=== PATIENT | male | born 1950 | race Caucasian/White ===

== ENCOUNTER 2020-09-18 12:22 | Emergency (ER) | payer MEDICARE ==
[~2020-09-18] VITALS: Ht 185.4 cm; Wt 101.0 kg
[2020-09-18 12:26] VITALS: BP 135/79
[2020-09-18 12:52] LABS: BASOPHILS # (AUTO) 0.1 X10'3 (0-0.2); BASOPHILS % (AUTO) 1.2 % (0-1); EOSINOPHILS # (AUTO) 0.2 X10'3 (0-0.9); EOSINOPHILS % (AUTO) 2.9 % (0-6); HEMATOCRIT 39.6 % (42.0-52.0); HEMOGLOBIN 13.8 g/dl (14.0-17.9); LYMPHOCYTES # (AUTO) 1.7 X10'3 (1.1-4.8); LYMPHOCYTES % (AUTO) 29.1 % (21-51); MEAN CORPUSCULAR HEMOGLOBIN 35.7 PG (27.0-31.0); MEAN CORPUSCULAR HGB CONC 34.9 g/dL (33.0-36.5); MEAN CORPUSCULAR VOLUME 102.4 FL (78-98); MEAN PLATELET VOLUME 7.1 FL (7.4-10.4); MONOCYTES % (AUTO) 17.4 % (2-12); NEUTROPHILS # (AUTO) 2.9 X10'3 (1.8-7.7); NEUTROPHILS % (AUTO) 49.4 % (42-75); PLATELET COUNT 123 X10'3 (140-440); RED BLOOD COUNT 3.87 X10'6 (4.70-6.10); RED CELL DISTRIBUTION WIDTH 15.4 % (11.5-14.5)
[2020-09-18 13:06] LABS: ALANINE AMINOTRANSFERASE 16 U/L (12-78); ALBUMIN 2.4 G/DL (3.4-5.0); ALKALINE PHOSPHATASE 110 IU/L (46-116); ANION GAP 5 (8-16); ASPARTATE AMINO TRANSFERASE 44 U/L (10-37); BILIRUBIN,TOTAL 4.2 MG/DL (0.1-1.0); BLOOD UREA NITROGEN 8 MG/DL (7-18); BUN/CREATININE RATIO 10.8 (5.4-32.0); CALCIUM 7.8 MG/DL (8.5-10.1); CHLORIDE 103 MMOL/L (99-107); CREATININE 0.74 MG/DL (0.60-1.10); LIPASE 187 U/L (73-393); POTASSIUM 4.2 MMOL/L (3.5-5.1); SODIUM 139 MMOL/L (135-145); TOTAL CARBON DIOXIDE 30.8 MMOL/L (24-32); eGFR > 90 ML/MIN
[2020-09-18 13:08] LABS: ALBUMIN/GLOBULIN RATIO 0.6 (1.1-1.5); GLUCOSE 85 MG/DL (70-104); TOTAL PROTEIN 6.6 G/DL (6.4-8.2)
== END 2020-09-18 20:22 | disposition left against medical advice (07) ==
LOC: ER 12:23
DX: R10.32 Left lower quadrant pain (principal); R60.0 Localized edema; Z53.21 Procedure and treatment not carried out due to patient leaving prior to being seen by health care provider
CPT/HCPCS: 80053; 83690; 85025

== ENCOUNTER 2020-10-16 09:26 | Day surgery (SDC) | payer MEDICARE, OTHER ==
[2020-10-16] VITALS (8 sets, daily range): BP systolic 95–135; BP diastolic 55–79
[~2020-10-16] VITALS: Ht 185.4 cm; Wt 105.1 kg
[2020-10-16] MEDS ORDERED: OXYC5CAP19 PO (10:12)
[2020-10-16] MEDS ORDERED: PROP10TA10 PO (10:12)
[2020-10-16] MEDS ORDERED: FURO-149 PO (10:12)
[2020-10-16] MEDS ORDERED: EPLE50TA3 PO (10:12)
[2020-10-16] MEDS ORDERED: LACT10SO3 PO (10:12)
[2020-10-16] MEDS: albumin 25% 100mL bottle x 1 IV PRN ×2 (11:30→12:15)
== END 2020-10-16 13:20 | disposition home or self-care (01) ==
LOC: SSTAY O 09:26
PROVIDERS: ATTEND Radiology Diagnostic Radiology
DX: R18.8 Other ascites (principal); R14.0 Abdominal distension (gaseous); K74.60 Unspecified cirrhosis of liver; Z85.05 Personal history of malignant neoplasm of liver; Z79.899 Other long term (current) drug therapy; Z88.8 Allergy status to other drugs, medicaments and biological substances
CPT/HCPCS: 49083; P9047

== ENCOUNTER 2020-10-28 07:30 | Day surgery (SDC) | payer OTHER ==
[~2020-10-28] VITALS: Ht 182.9 cm; Wt 98.5 kg
[2020-10-28] VITALS (12 sets, daily range): BP systolic 111–136; BP diastolic 56–77
[~2020-10-28 07:30] MED LIST: EPLE50TA3 PO; FURO-149 PO; LACT10SO3 PO; OXYC5CAP19 PO; PROP10TA10 PO
[2020-10-28] MEDS: albumin 25% 100mL bottle x 1 IV PRN ×2 (10:00→10:44)
== END 2020-10-28 11:15 | disposition home or self-care (01) ==
LOC: SSTAY O 07:30
PROVIDERS: ATTEND Radiology Diagnostic Radiology
DX: R18.8 Other ascites (principal); R14.0 Abdominal distension (gaseous); K74.60 Unspecified cirrhosis of liver; Z85.05 Personal history of malignant neoplasm of liver; Z86.19 Personal history of other infectious and parasitic diseases; Z88.8 Allergy status to other drugs, medicaments and biological substances; Z79.899 Other long term (current) drug therapy
CPT/HCPCS: 49083; P9047

== ENCOUNTER 2020-11-17 08:56 | Day surgery (SDC) | payer OTHER ==
[2020-11-17] VITALS (11 sets, daily range): BP systolic 100–121; BP diastolic 54–70
[~2020-11-17] VITALS: Ht 185.4 cm; Wt 98.4 kg
[2020-11-17] MEDS: albumin 25% 100mL bottle x 1 IV PRN ×2 (10:26→11:09)
== END 2020-11-17 12:25 | disposition home or self-care (01) ==
LOC: SSTAY O 08:56
PROVIDERS: ATTEND Radiology Diagnostic Radiology
DX: R18.8 Other ascites (principal); R14.0 Abdominal distension (gaseous); K74.60 Unspecified cirrhosis of liver; C22.0 Liver cell carcinoma; Z88.8 Allergy status to other drugs, medicaments and biological substances; Z79.899 Other long term (current) drug therapy
CPT/HCPCS: 49083; P9047

== ENCOUNTER 2020-12-01 07:37 | Day surgery (SDC) | payer OTHER ==
[2020-12-01] VITALS (10 sets, daily range): BP systolic 92–129; BP diastolic 47–72
[~2020-12-01] VITALS: Ht 185.4 cm; Wt 94.0 kg
[2020-12-01] MEDS: albumin 25% 100mL bottle x 1 IV PRN ×2 (10:10→10:57)
== END 2020-12-01 12:00 | disposition home or self-care (01) ==
LOC: SSTAY O 07:37
PROVIDERS: ATTEND Radiology Vascular & Interventional Radiology
DX: R18.8 Other ascites (principal); R14.0 Abdominal distension (gaseous); K74.60 Unspecified cirrhosis of liver; Z86.19 Personal history of other infectious and parasitic diseases; Z85.05 Personal history of malignant neoplasm of liver
CPT/HCPCS: 49083; P9047

== ENCOUNTER 2020-12-17 07:58 | Day surgery (SDC) | payer OTHER ==
[~2020-12-17] VITALS: Ht 185.4 cm; Wt 92.8 kg
[2020-12-17] VITALS (14 sets, daily range): BP systolic 73–121; BP diastolic 35–62
[2020-12-17] MEDS: albumin 25% 100mL bottle x 1 IV PRN ×2 (09:45→10:33)
--- NOTE | 2020-12-17 10:25 | NUR ---
Contacted MICHELLE Preciado to notify that patient BP 73/35 with dizziness reported. Paracentesis drainage stopped. New orders for 500 mL bolus normal saline and repeat times once to maintain SBP > 100. OK to administer 2nd albumin.
--- NOTE | 2020-12-17 10:35 | NUR ---
Monitoring VS. Patient in [place] position. BP 81/44. Normal saline bolus infusing.
--- NOTE | 2020-12-17 10:45 | NUR ---
BP 95/52. 2nd albumin infusing. Patient A/O x 4 with no complaints of dizziness. Will continue to monitor.
[2020-12-17] MEDS ORDERED: normal saline 1000ml 1,000 ML IV ONE (11:05)
== END 2020-12-17 12:15 | disposition home or self-care (01) ==
LOC: SSTAY O 07:58
PROVIDERS: ATTEND Radiology Diagnostic Radiology
DX: R18.8 Other ascites (principal); K74.60 Unspecified cirrhosis of liver; C22.0 Liver cell carcinoma; Z86.19 Personal history of other infectious and parasitic diseases; Z79.899 Other long term (current) drug therapy
CPT/HCPCS: 49083; P9047

== ENCOUNTER 2020-12-29 08:27 | Day surgery (SDC) | payer OTHER ==
[~2020-12-29] VITALS: Ht 185.4 cm; Wt 93.5 kg
[2020-12-29] VITALS (9 sets, daily range): BP systolic 104–132; BP diastolic 55–72
[2020-12-29] MEDS: albumin 25% 100mL bottle x 1 IV PRN ×2 (09:57→10:49)
== END 2020-12-29 11:45 | disposition home or self-care (01) ==
LOC: SSTAY O 08:27
PROVIDERS: ATTEND Radiology Vascular & Interventional Radiology
DX: R18.8 Other ascites (principal); K74.60 Unspecified cirrhosis of liver; C22.0 Liver cell carcinoma; Z98.890 Other specified postprocedural states; Z88.8 Allergy status to other drugs, medicaments and biological substances; Z79.899 Other long term (current) drug therapy
CPT/HCPCS: 49083; P9047

== ENCOUNTER 2021-01-22 07:50 | Day surgery (SDC) | payer OTHER ==
[~2021-01-22] VITALS: Ht 188 cm; Wt 94.4 kg
[2021-01-22] VITALS (11 sets, daily range): BP systolic 96–112; BP diastolic 54–76
[2021-01-22] MEDS: albumin 25% 100mL bottle x 1 IV PRN ×2 (09:51→10:32)
== END 2021-01-22 12:00 | disposition home or self-care (01) ==
LOC: SSTAY O 07:50
PROVIDERS: ATTEND Radiology Vascular & Interventional Radiology
DX: R18.8 Other ascites (principal); R14.0 Abdominal distension (gaseous); C22.0 Liver cell carcinoma; Z86.19 Personal history of other infectious and parasitic diseases; Z88.8 Allergy status to other drugs, medicaments and biological substances; Z79.899 Other long term (current) drug therapy
CPT/HCPCS: 49083; P9047

== ENCOUNTER 2021-02-02 08:31 | Day surgery (SDC) | payer OTHER ==
[2021-02-02] VITALS (10 sets, daily range): BP systolic 87–122; BP diastolic 47–72
[~2021-02-02] VITALS: Ht 188 cm; Wt 92.8 kg
[2021-02-02] MEDS ORDERED: normal saline 1000ml 1,000 ML IV PRN (09:05)
[2021-02-02] MEDS: albumin 25% 100mL bottle x 1 IV PRN ×2 (09:59→11:18)
== END 2021-02-02 12:25 | disposition home or self-care (01) ==
LOC: SSTAY O 08:31
PROVIDERS: ATTEND Radiology Diagnostic Radiology
DX: R18.8 Other ascites (principal); R14.0 Abdominal distension (gaseous); K74.60 Unspecified cirrhosis of liver; Z85.05 Personal history of malignant neoplasm of liver; Z86.19 Personal history of other infectious and parasitic diseases
CPT/HCPCS: 49083; P9047

== ENCOUNTER 2021-02-16 08:44 | Day surgery (SDC) | payer OTHER ==
[2021-02-16] VITALS (7 sets, daily range): BP systolic 99–127; BP diastolic 55–67
[~2021-02-16] VITALS: Ht 188 cm; Wt 91.9 kg
[~2021-02-16 08:44] MED LIST changes: +LIDOcaine 1% 30ml preserv. free vial SQ STA
[2021-02-16] MEDS: albumin 25% 100mL bottle x 1 IV PRN ×2 (09:37→10:28)
== END 2021-02-16 11:05 | disposition home or self-care (01) ==
LOC: SSTAY O 08:44
PROVIDERS: ATTEND Radiology Vascular & Interventional Radiology
DX: R18.8 Other ascites (principal); R14.0 Abdominal distension (gaseous); K74.69 Other cirrhosis of liver; Z85.05 Personal history of malignant neoplasm of liver; Z86.19 Personal history of other infectious and parasitic diseases; Z88.8 Allergy status to other drugs, medicaments and biological substances; Z79.899 Other long term (current) drug therapy
CPT/HCPCS: 49083; P9047

== ENCOUNTER 2021-03-02 07:07 | Day surgery (SDC) | payer OTHER ==
[2021-03-02] VITALS (8 sets, daily range): BP systolic 96–124; BP diastolic 44–71
[~2021-03-02] VITALS: Ht 188 cm; Wt 94.8 kg
[~2021-03-02 07:07] MED LIST changes: -LIDOcaine 1% 30ml preserv. free vial SQ STA
[2021-03-02] MEDS ORDERED: LIDOcaine 1% 30ml preserv. free vial SQ STA (07:34)
[2021-03-02] MEDS ORDERED: albumin 25% 100mL bottle x 1 IV PRN (07:35)
== END 2021-03-02 12:35 | disposition home or self-care (01) ==
LOC: SSTAY O 07:07
PROVIDERS: ATTEND Radiology Vascular & Interventional Radiology
DX: R18.8 Other ascites (principal); R14.0 Abdominal distension (gaseous); K74.60 Unspecified cirrhosis of liver; Z86.19 Personal history of other infectious and parasitic diseases; Z85.05 Personal history of malignant neoplasm of liver
CPT/HCPCS: 49083; P9047

== ENCOUNTER 2021-03-22 08:06 | Day surgery (SDC) | payer OTHER ==
[2021-03-22] VITALS (13 sets, daily range): BP systolic 110–131; BP diastolic 48–77
[~2021-03-22] VITALS: Ht 188 cm; Wt 96.4 kg
[2021-03-22] MEDS ORDERED: LIDOcaine 1% 30ml preserv. free vial SQ STA (08:16)
[2021-03-22] MEDS ORDERED: normal saline 1000ml 1,000 ML IV PRN (08:25)
[2021-03-22] MEDS: albumin 25% 100mL bottle x 1 IV PRN ×2 (09:03→10:19)
--- NOTE | 2021-03-22 11:30 | NUR ---
Pt sitting up in bed eating breakfast tray. Feet dangling at side of bed. VS stable as charted.
== END 2021-03-22 12:30 | disposition home or self-care (01) ==
LOC: SSTAY O 08:06
PROVIDERS: ATTEND Radiology Diagnostic Radiology
DX: R18.8 Other ascites (principal); R14.0 Abdominal distension (gaseous); K74.60 Unspecified cirrhosis of liver; Z85.05 Personal history of malignant neoplasm of liver; Z88.8 Allergy status to other drugs, medicaments and biological substances; Z79.899 Other long term (current) drug therapy
CPT/HCPCS: 49083; J3490; P9047

== ENCOUNTER 2021-04-01 08:34 | Day surgery (SDC) | payer OTHER ==
[~2021-04-01] VITALS: Ht 188 cm; Wt 96.2 kg
[2021-04-01] VITALS (11 sets, daily range): BP systolic 112–131; BP diastolic 57–72
[2021-04-01] MEDS ORDERED: LIDOcaine 1% 30ml preserv. free vial SQ STA (09:47)
[2021-04-01] MEDS: albumin 25% 100mL bottle x 1 IV PRN ×2 (10:41→11:45)
== END 2021-04-01 13:00 | disposition home or self-care (01) ==
LOC: SSTAY O 08:34
PROVIDERS: ATTEND Radiology Vascular & Interventional Radiology
DX: R18.8 Other ascites (principal); R14.0 Abdominal distension (gaseous); K74.60 Unspecified cirrhosis of liver; Z86.19 Personal history of other infectious and parasitic diseases; Z85.05 Personal history of malignant neoplasm of liver
CPT/HCPCS: 49083; J3490; P9047

== ENCOUNTER 2021-04-12 08:05 | Day surgery (SDC) | payer OTHER ==
[~2021-04-12] VITALS: Ht 188 cm; Wt 94.0 kg
[2021-04-12] VITALS (13 sets, daily range): BP systolic 98–124; BP diastolic 50–71
[2021-04-12] MEDS ORDERED: LIDOcaine 1% 30ml preserv. free vial SQ STA (08:21)
[2021-04-12] MEDS: albumin 25% 100mL bottle x 1 IV PRN ×2 (10:13→10:23)
== END 2021-04-12 12:24 | disposition home or self-care (01) ==
LOC: SSTAY O 08:05
PROVIDERS: ATTEND Radiology Vascular & Interventional Radiology
DX: R18.8 Other ascites (principal); K74.60 Unspecified cirrhosis of liver; Z85.05 Personal history of malignant neoplasm of liver; Z86.19 Personal history of other infectious and parasitic diseases
CPT/HCPCS: 49083; J3490; P9047

== ENCOUNTER 2021-04-22 08:44 | Day surgery (SDC) | payer MEDICARE, OTHER ==
[2021-04-22] VITALS (12 sets, daily range): BP systolic 107–140; BP diastolic 59–78
[~2021-04-22] VITALS: Ht 188 cm; Wt 92.6 kg
[2021-04-22] MEDS ORDERED: albumin 25% 100mL bottle x 1 IV PRN (09:20)
== END 2021-04-22 12:15 | disposition home or self-care (01) ==
LOC: SSTAY O 08:44
PROVIDERS: ATTEND Radiology Vascular & Interventional Radiology
DX: R18.8 Other ascites (principal); R14.0 Abdominal distension (gaseous); K74.60 Unspecified cirrhosis of liver; Z86.19 Personal history of other infectious and parasitic diseases; Z85.05 Personal history of malignant neoplasm of liver; Z88.8 Allergy status to other drugs, medicaments and biological substances; Z79.899 Other long term (current) drug therapy
CPT/HCPCS: 49083; P9047

== ENCOUNTER 2021-05-03 08:40 | Day surgery (SDC) | payer OTHER ==
[~2021-05-03] VITALS: Ht 188 cm; Wt 94.1 kg
[2021-05-03] MEDS ORDERED: LIDOcaine 1% 30ml preserv. free vial SQ STA (09:01)
[2021-05-03 09:19] VITALS: BP 131/76
[2021-05-03 09:56] VITALS: BP 122/70
[2021-05-03 10:15] VITALS: BP 125/57
[2021-05-03] MEDS: albumin 25% 100mL bottle x 1 IV PRN ×2 (10:27→10:34)
[2021-05-03 10:30] VITALS: BP 118/62
[2021-05-03 10:45] VITALS: BP 116/59
[2021-05-03 11:00] VITALS: BP 121/64
== END 2021-05-03 12:00 | disposition home or self-care (01) ==
LOC: SSTAY O 08:40
PROVIDERS: ATTEND Radiology Vascular & Interventional Radiology
DX: R18.8 Other ascites (principal); R14.0 Abdominal distension (gaseous); K74.60 Unspecified cirrhosis of liver; Z86.19 Personal history of other infectious and parasitic diseases; Z85.05 Personal history of malignant neoplasm of liver
CPT/HCPCS: 49083; P9047

== ENCOUNTER 2021-05-13 08:03 | Day surgery (SDC) | payer OTHER ==
[~2021-05-13] VITALS: Ht 188 cm; Wt 95.0 kg
[2021-05-13] VITALS (18 sets, daily range): BP systolic 72–159; BP diastolic 51–78
[2021-05-13] MEDS ORDERED: LIDOcaine 1% 30ml preserv. free vial SQ STA (08:41)
[2021-05-13] MEDS: albumin 25% 100mL bottle x 1 IV PRN ×2 (10:32→11:12)
== END 2021-05-13 12:40 | disposition home or self-care (01) ==
LOC: SSTAY O 08:03
PROVIDERS: ATTEND Preventive Medicine Aerospace Medicine
DX: R18.8 Other ascites (principal); R14.0 Abdominal distension (gaseous); K74.60 Unspecified cirrhosis of liver; Z85.05 Personal history of malignant neoplasm of liver; Z79.899 Other long term (current) drug therapy
CPT/HCPCS: 49083; J3490; P9047

== ENCOUNTER 2021-05-21 08:27 | Day surgery (SDC) | payer OTHER ==
[~2021-05-21] VITALS: Ht 188 cm; Wt 90.9 kg
[2021-05-21] VITALS (13 sets, daily range): BP systolic 110–134; BP diastolic 57–89
[~2021-05-21 08:27] MED LIST changes: +LIDOcaine 1% 30ml preserv. free vial IJ STA; +LIDOcaine 1% 30ml preserv. free vial SQ STA
[2021-05-21] MEDS: albumin 25% 100mL bottle x 1 IV PRN ×2 (10:00→11:17)
== END 2021-05-21 12:30 | disposition home or self-care (01) ==
LOC: SSTAY O 08:27
PROVIDERS: ATTEND Radiology Vascular & Interventional Radiology
DX: R18.8 Other ascites (principal); R14.0 Abdominal distension (gaseous); K74.60 Unspecified cirrhosis of liver; Z86.19 Personal history of other infectious and parasitic diseases; Z85.05 Personal history of malignant neoplasm of liver; Z79.899 Other long term (current) drug therapy
CPT/HCPCS: 49083; J3490; P9047

== ENCOUNTER 2021-06-03 08:40 | Day surgery (SDC) | payer OTHER ==
[2021-06-03] VITALS (12 sets, daily range): BP systolic 107–127; BP diastolic 51–62
[~2021-06-03] VITALS: Ht 188 cm; Wt 91.7 kg
[~2021-06-03 08:40] MED LIST changes: -LIDOcaine 1% 30ml preserv. free vial IJ STA; -LIDOcaine 1% 30ml preserv. free vial SQ STA
[2021-06-03] MEDS ORDERED: FURO80TA3 PO (09:00)
[2021-06-03] MEDS ORDERED: LIDOcaine 1%/PF 5ML 10 MG/ML VIAL IJ ONE (09:35)
[2021-06-03] MEDS: albumin 25% 100mL bottle x 1 IV PRN (12:44)
== END 2021-06-03 13:50 | disposition home or self-care (01) ==
LOC: SSTAY O 08:40
PROVIDERS: ATTEND Radiology Diagnostic Radiology
DX: R18.8 Other ascites (principal); R14.0 Abdominal distension (gaseous); K74.60 Unspecified cirrhosis of liver; Z86.19 Personal history of other infectious and parasitic diseases; Z85.05 Personal history of malignant neoplasm of liver; Z88.8 Allergy status to other drugs, medicaments and biological substances; Z79.899 Other long term (current) drug therapy
CPT/HCPCS: 49083; P9047

== ENCOUNTER 2021-06-11 08:40 | Day surgery (SDC) | payer OTHER ==
[2021-06-11] VITALS (13 sets, daily range): BP systolic 95–128; BP diastolic 40–82
[~2021-06-11 08:40] MED LIST changes: -FURO-149 PO; +FURO80TA3 PO; +LIDOcaine 1%/PF 5ML 10 MG/ML VIAL SQ ONE
[2021-06-11] MEDS: albumin 25% 100mL bottle x 1 IV PRN ×2 (09:27→10:19)
== END 2021-06-11 12:15 | disposition home or self-care (01) ==
LOC: SSTAY O 08:40
PROVIDERS: ATTEND Radiology Vascular & Interventional Radiology
DX: R18.8 Other ascites (principal); R14.0 Abdominal distension (gaseous); K74.60 Unspecified cirrhosis of liver; Z86.19 Personal history of other infectious and parasitic diseases; Z85.05 Personal history of malignant neoplasm of liver; Z79.899 Other long term (current) drug therapy
CPT/HCPCS: 49083; J3490; P9047

== ENCOUNTER 2021-06-18 08:33 | Day surgery (SDC) | payer OTHER ==
[~2021-06-18] VITALS: Ht 188 cm; Wt 92.9 kg
[2021-06-18] VITALS (11 sets, daily range): BP systolic 106–137; BP diastolic 53–79
[~2021-06-18 08:33] MED LIST changes: +LIDOcaine 1%/PF 5ML 10 MG/ML VIAL IJ ONE; -LIDOcaine 1%/PF 5ML 10 MG/ML VIAL SQ ONE
[2021-06-18] MEDS: albumin 25% 100mL bottle x 1 IV PRN ×2 (09:44→10:35)
== END 2021-06-18 12:10 | disposition home or self-care (01) ==
LOC: SSTAY O 08:33
PROVIDERS: ATTEND Radiology Diagnostic Radiology
DX: R18.8 Other ascites (principal); R14.0 Abdominal distension (gaseous); K74.60 Unspecified cirrhosis of liver; Z85.05 Personal history of malignant neoplasm of liver; Z86.19 Personal history of other infectious and parasitic diseases; Z79.899 Other long term (current) drug therapy
CPT/HCPCS: 49083; J3490; P9047

== ENCOUNTER 2021-06-25 07:07 | Day surgery (SDC) | payer OTHER ==
[~2021-06-25] VITALS: Ht 188 cm; Wt 93.5 kg
[2021-06-25] VITALS (10 sets, daily range): BP systolic 16–127; BP diastolic 54–76
[2021-06-25] MEDS ORDERED: LIDOcaine 1%/PF 5ML 10 MG/ML VIAL SQ ONE (07:55)
[2021-06-25] MEDS: albumin 25% 100mL bottle x 1 IV PRN ×2 (08:32→09:37)
== END 2021-06-25 10:45 | disposition home or self-care (01) ==
LOC: SSTAY O 07:07
PROVIDERS: ATTEND Radiology Vascular & Interventional Radiology
DX: R18.8 Other ascites (principal); R14.0 Abdominal distension (gaseous); K74.60 Unspecified cirrhosis of liver; Z85.05 Personal history of malignant neoplasm of liver; Z86.19 Personal history of other infectious and parasitic diseases; Z88.8 Allergy status to other drugs, medicaments and biological substances; Z79.899 Other long term (current) drug therapy
CPT/HCPCS: 49083; J3490; P9047

== ENCOUNTER 2021-07-02 08:33 | Day surgery (SDC) | payer OTHER ==
[2021-07-02] VITALS (8 sets, daily range): BP systolic 98–114; BP diastolic 57–74
[~2021-07-02] VITALS: Ht 188 cm; Wt 92.7 kg
[2021-07-02] MEDS: albumin 25% 100mL bottle x 1 IV PRN ×2 (10:41→10:44)
== END 2021-07-02 12:45 | disposition home or self-care (01) ==
LOC: SSTAY O 08:33
PROVIDERS: ATTEND Radiology Vascular & Interventional Radiology
DX: R18.8 Other ascites (principal); R14.0 Abdominal distension (gaseous); K74.60 Unspecified cirrhosis of liver; Z86.19 Personal history of other infectious and parasitic diseases; Z79.899 Other long term (current) drug therapy
CPT/HCPCS: 49083; J3490; P9047

== ENCOUNTER 2021-07-09 08:34 | Day surgery (SDC) | payer OTHER ==
[2021-07-09] VITALS (8 sets, daily range): BP systolic 104–125; BP diastolic 57–77
[~2021-07-09] VITALS: Ht 188 cm; Wt 92.1 kg
[~2021-07-09 08:34] MED LIST changes: -LIDOcaine 1%/PF 5ML 10 MG/ML VIAL IJ ONE
[2021-07-09] MEDS ORDERED: LIDOcaine 1%/PF 5ML 10 MG/ML VIAL SQ ONE (08:50)
[2021-07-09] MEDS ORDERED: albumin 25% 100mL bottle x 1 IV PRN (09:15)
== END 2021-07-09 12:01 | disposition home or self-care (01) ==
LOC: SSTAY O 08:34
PROVIDERS: ATTEND Radiology Diagnostic Radiology
DX: R18.8 Other ascites (principal); R14.0 Abdominal distension (gaseous); K74.60 Unspecified cirrhosis of liver; Z85.05 Personal history of malignant neoplasm of liver; Z86.19 Personal history of other infectious and parasitic diseases; Z79.899 Other long term (current) drug therapy
CPT/HCPCS: 49083; P9047

== ENCOUNTER 2021-07-16 08:03 | Day surgery (SDC) | payer OTHER ==
[~2021-07-16] VITALS: Ht 188 cm; Wt 92.0 kg
[2021-07-16] VITALS (11 sets, daily range): BP systolic 106–125; BP diastolic 48–72
[2021-07-16] MEDS ORDERED: albumin 25% 100mL bottle x 1 IV PRN (08:25)
[2021-07-16] MEDS ORDERED: LIDOcaine 1%/PF 5ML 10 MG/ML VIAL IJ ONE (08:30)
== END 2021-07-16 12:37 | disposition home or self-care (01) ==
LOC: SSTAY O 08:03
PROVIDERS: ATTEND Preventive Medicine Aerospace Medicine
DX: R18.8 Other ascites (principal); R14.0 Abdominal distension (gaseous); K74.60 Unspecified cirrhosis of liver; Z86.19 Personal history of other infectious and parasitic diseases; Z85.05 Personal history of malignant neoplasm of liver; Z79.899 Other long term (current) drug therapy
CPT/HCPCS: 49083; J3490; P9047

== ENCOUNTER 2021-07-23 08:39 | Day surgery (SDC) | payer OTHER ==
[~2021-07-23] VITALS: Ht 188 cm; Wt 93.3 kg
[2021-07-23] VITALS (11 sets, daily range): BP systolic 108–133; BP diastolic 27–76
[~2021-07-23 08:39] MED LIST changes: +LIDOcaine 1%/PF 5ML 10 MG/ML VIAL IJ ONE
[2021-07-23] MEDS ORDERED: albumin 25% 100mL bottle x 1 IV PRN (09:15)
== END 2021-07-23 13:27 | disposition home or self-care (01) ==
LOC: SSTAY O 08:39
PROVIDERS: ATTEND Radiology Diagnostic Radiology
DX: R18.8 Other ascites (principal); R14.0 Abdominal distension (gaseous); K74.69 Other cirrhosis of liver; Z85.05 Personal history of malignant neoplasm of liver; Z86.19 Personal history of other infectious and parasitic diseases; Z79.899 Other long term (current) drug therapy
CPT/HCPCS: 49083; J3490; P9047

== ENCOUNTER 2021-07-30 08:05 | Day surgery (SDC) | payer OTHER ==
[2021-07-30] VITALS (10 sets, daily range): BP systolic 94–122; BP diastolic 57–72
[~2021-07-30] VITALS: Ht 188 cm; Wt 92.1 kg
[2021-07-30] MEDS ORDERED: albumin 25% 100mL bottle x 1 IV PRN (08:30)
[2021-07-30] MEDS ORDERED: normal saline 1000ml 1,000 ML IV PRN (08:30)
== END 2021-07-30 12:45 | disposition home or self-care (01) ==
LOC: SSTAY O 08:05
PROVIDERS: ATTEND Radiology Vascular & Interventional Radiology
DX: R18.8 Other ascites (principal); R14.0 Abdominal distension (gaseous); K74.60 Unspecified cirrhosis of liver; Z86.19 Personal history of other infectious and parasitic diseases; Z85.05 Personal history of malignant neoplasm of liver; Z79.899 Other long term (current) drug therapy; Z88.8 Allergy status to other drugs, medicaments and biological substances
CPT/HCPCS: 49083; J3490; P9047

== ENCOUNTER 2021-08-06 08:32 | Day surgery (SDC) | payer OTHER ==
[2021-08-06] VITALS (15 sets, daily range): BP systolic 98–121; BP diastolic 53–77
[2021-08-06] MEDS ORDERED: normal saline 1000ml 1,000 ML IV PRN (09:05)
[2021-08-06] MEDS: albumin 25% 100mL bottle x 1 IV PRN ×2 (10:21→12:02)
== END 2021-08-06 13:08 | disposition home or self-care (01) ==
LOC: SSTAY O 08:32
PROVIDERS: ATTEND Radiology Diagnostic Radiology
DX: R18.8 Other ascites (principal); R14.0 Abdominal distension (gaseous); K74.60 Unspecified cirrhosis of liver; Z86.19 Personal history of other infectious and parasitic diseases; Z85.05 Personal history of malignant neoplasm of liver; Z79.899 Other long term (current) drug therapy
CPT/HCPCS: 49083; J3490; P9047

== ENCOUNTER 2021-08-16 07:53 | Day surgery (SDC) | payer OTHER ==
[~2021-08-16] VITALS: Ht 188 cm; Wt 96.0 kg
[2021-08-16] VITALS (14 sets, daily range): BP systolic 98–126; BP diastolic 35–73
[~2021-08-16 07:53] MED LIST changes: -LIDOcaine 1%/PF 5ML 10 MG/ML VIAL IJ ONE
[2021-08-16] MEDS ORDERED: LIDOcaine 1%/PF 5ML 10 MG/ML VIAL IM ONE (08:40)
[2021-08-16] MEDS ORDERED: albumin (human) 25% 100ml IV 100 ML IV ONE ×2 (09:40→10:50)
[2021-08-16] MEDS ORDERED: LIDOcaine 1%/PF 5ML 10 MG/ML VIAL SQ ONE (11:15)
== END 2021-08-16 13:45 | disposition home or self-care (01) ==
LOC: SSTAY O 07:53
PROVIDERS: ATTEND Radiology Vascular & Interventional Radiology
DX: R18.8 Other ascites (principal); R14.0 Abdominal distension (gaseous); K74.60 Unspecified cirrhosis of liver; Z86.19 Personal history of other infectious and parasitic diseases; Z85.05 Personal history of malignant neoplasm of liver; Z79.899 Other long term (current) drug therapy
CPT/HCPCS: 49083; J3490

== ENCOUNTER 2021-08-23 08:41 | Day surgery (SDC) | payer OTHER ==
[~2021-08-23] VITALS: Ht 188 cm; Wt 95.8 kg
[2021-08-23 08:58] VITALS: BP 124/66
[2021-08-23] MEDS ORDERED: LIDOcaine 1% 30ml preserv. free vial SQ STA (09:03)
[2021-08-23] MEDS ORDERED: albumin 25% 100mL bottle x 1 IV PRN (09:05)
[2021-08-23 09:07] VITALS: BP 124/76
[2021-08-23 10:00] VITALS: BP 117/67
[2021-08-23 10:15] VITALS: BP 108/59
[2021-08-23 10:30] VITALS: BP 99/53
[2021-08-23 10:45] VITALS: BP 91/48
== END 2021-08-23 12:00 | disposition home or self-care (01) ==
LOC: SSTAY O 08:41
PROVIDERS: ATTEND Radiology Vascular & Interventional Radiology
DX: R18.8 Other ascites (principal); R14.0 Abdominal distension (gaseous); K74.60 Unspecified cirrhosis of liver; Z86.19 Personal history of other infectious and parasitic diseases; Z85.05 Personal history of malignant neoplasm of liver; Z88.8 Allergy status to other drugs, medicaments and biological substances; Z79.899 Other long term (current) drug therapy
CPT/HCPCS: 49083; J3490; P9047

== ENCOUNTER 2021-08-31 07:27 | Day surgery (SDC) | payer OTHER ==
[~2021-08-31] VITALS: Ht 188 cm; Wt 95.5 kg
[2021-08-31] VITALS (9 sets, daily range): BP systolic 95–126; BP diastolic 55–77
[2021-08-31] MEDS ORDERED: LIDOcaine 1%/PF 5ML 10 MG/ML VIAL SQ ONE (07:45)
[2021-08-31] MEDS ORDERED: FURO40TA4 PO (07:48)
[2021-08-31] MEDS ORDERED: normal saline 1000ml 1,000 ML IV PRN (08:00)
[2021-08-31] MEDS: albumin 25% 100mL bottle x 1 IV PRN ×2 (10:15→10:16)
== END 2021-08-31 11:35 | disposition home or self-care (01) ==
LOC: SSTAY O 07:27
PROVIDERS: ATTEND Radiology Diagnostic Radiology
DX: R18.8 Other ascites (principal); K74.60 Unspecified cirrhosis of liver; Z85.05 Personal history of malignant neoplasm of liver; Z86.19 Personal history of other infectious and parasitic diseases; Z88.8 Allergy status to other drugs, medicaments and biological substances; Z79.899 Other long term (current) drug therapy
CPT/HCPCS: 49083; J3490; P9047

== ENCOUNTER 2021-09-07 08:32 | Day surgery (SDC) | payer OTHER ==
[~2021-09-07] VITALS: Ht 188 cm; Wt 91.6 kg
[2021-09-07] VITALS (10 sets, daily range): BP systolic 99–121; BP diastolic 56–71
[~2021-09-07 08:32] MED LIST changes: +FURO40TA4 PO; -FURO80TA3 PO
[2021-09-07] MEDS ORDERED: LIDOcaine 1%/PF 5ML 10 MG/ML VIAL SQ ONE (09:00)
[2021-09-07] MEDS: albumin 25% 100mL bottle x 1 IV PRN ×2 (09:27→11:04)
== END 2021-09-07 12:25 | disposition home or self-care (01) ==
LOC: SSTAY O 08:32
PROVIDERS: ATTEND Radiology Vascular & Interventional Radiology
DX: R18.8 Other ascites (principal); R14.0 Abdominal distension (gaseous); K74.60 Unspecified cirrhosis of liver; Z85.05 Personal history of malignant neoplasm of liver; Z79.899 Other long term (current) drug therapy
CPT/HCPCS: 49083; J3490; P9047; A6258

== ENCOUNTER 2021-09-14 07:05 | Day surgery (SDC) | payer OTHER ==
[2021-09-14] VITALS (8 sets, daily range): BP systolic 104–120; BP diastolic 57–69
[~2021-09-14] VITALS: Ht 188 cm; Wt 89.9 kg
[2021-09-14] MEDS ORDERED: LIDOcaine 1%/PF 5ML 10 MG/ML VIAL SQ ONE (07:25)
[2021-09-14] MEDS ORDERED: albumin 25% 100mL bottle x 1 IV PRN (07:50)
== END 2021-09-14 11:20 | disposition home or self-care (01) ==
LOC: SSTAY O 07:05
PROVIDERS: ATTEND Radiology Vascular & Interventional Radiology
DX: R18.8 Other ascites (principal); R14.0 Abdominal distension (gaseous); K74.60 Unspecified cirrhosis of liver; Z85.05 Personal history of malignant neoplasm of liver; Z86.19 Personal history of other infectious and parasitic diseases; Z79.899 Other long term (current) drug therapy
CPT/HCPCS: 49083; J3490; P9047; Z7610; A6258; A6449

== ENCOUNTER 2021-09-22 07:09 | Day surgery (SDC) | payer OTHER ==
[2021-09-22] VITALS (8 sets, daily range): BP systolic 92–155; BP diastolic 51–100
[~2021-09-22] VITALS: Ht 188 cm; Wt 92.4 kg
[2021-09-22] MEDS ORDERED: albumin 25% 100mL bottle x 1 IV PRN (07:30)
[2021-09-22] MEDS ORDERED: LIDOcaine 1%/PF 5ML 10 MG/ML VIAL SQ ONE (07:35)
[2021-09-22] MEDS ORDERED: UREA (07:36)
== END 2021-09-22 10:00 | disposition home or self-care (01) ==
LOC: SSTAY O 07:09
PROVIDERS: ATTEND Radiology Diagnostic Radiology
DX: R18.8 Other ascites (principal); R14.0 Abdominal distension (gaseous); K74.60 Unspecified cirrhosis of liver; Z85.05 Personal history of malignant neoplasm of liver; Z86.19 Personal history of other infectious and parasitic diseases; Z79.899 Other long term (current) drug therapy; Z88.8 Allergy status to other drugs, medicaments and biological substances
CPT/HCPCS: 49083; J3490; P9047; Z7610; A6258

== ENCOUNTER 2021-09-30 11:53 | Day surgery (SDC) | payer OTHER ==
[~2021-09-30] VITALS: Ht 188 cm; Wt 93.7 kg
[2021-09-30] VITALS (11 sets, daily range): BP systolic 95–137; BP diastolic 53–104
[~2021-09-30 11:53] MED LIST changes: +UREA
[2021-09-30] MEDS ORDERED: LIDOcaine 1%/PF 5ML 10 MG/ML VIAL SQ ONE (12:00)
[2021-09-30] MEDS ORDERED: albumin 25% 100mL bottle x 1 IV PRN (12:10)
== END 2021-09-30 14:55 | disposition home or self-care (01) ==
LOC: SSTAY O 11:53
PROVIDERS: ATTEND Radiology Vascular & Interventional Radiology
DX: R18.8 Other ascites (principal); K74.60 Unspecified cirrhosis of liver; Z86.19 Personal history of other infectious and parasitic diseases; Z85.05 Personal history of malignant neoplasm of liver
CPT/HCPCS: 49083; J3490; P9047; A6258; A6449

== ENCOUNTER 2021-10-07 08:46 | Day surgery (SDC) | payer OTHER ==
[2021-10-07] VITALS (8 sets, daily range): BP systolic 110–129; BP diastolic 58–69
[~2021-10-07] VITALS: Ht 188 cm; Wt 94.9 kg
[2021-10-07] MEDS ORDERED: LIDOcaine 1%/PF 5ML 10 MG/ML VIAL SQ ONE (08:55)
[2021-10-07] MEDS ORDERED: albumin 25% 100mL bottle x 1 IV PRN (09:05)
== END 2021-10-07 11:55 | disposition home or self-care (01) ==
LOC: SSTAY O 08:46
PROVIDERS: ATTEND Preventive Medicine Aerospace Medicine
DX: R18.8 Other ascites (principal); Z86.19 Personal history of other infectious and parasitic diseases; Z88.8 Allergy status to other drugs, medicaments and biological substances; Z79.899 Other long term (current) drug therapy
CPT/HCPCS: 49083; J3490; P9047; Z7610; A6258; A6449

== ENCOUNTER 2021-10-14 08:05 | Day surgery (SDC) | payer OTHER ==
[~2021-10-14] VITALS: Ht 188 cm; Wt 93.5 kg
[2021-10-14] VITALS (9 sets, daily range): BP systolic 103–124; BP diastolic 59–72
[~2021-10-14 08:05] MED LIST changes: -UREA
[2021-10-14] MEDS ORDERED: LIDOcaine 1%/PF 5ML 10 MG/ML VIAL IJ ONE (08:20)
[2021-10-14] MEDS ORDERED: albumin 25% 100mL bottle x 1 IV PRN (08:30)
== END 2021-10-14 12:35 | disposition home or self-care (01) ==
LOC: SSTAY O 08:05
PROVIDERS: ATTEND Radiology Diagnostic Radiology
DX: R18.8 Other ascites (principal); K74.60 Unspecified cirrhosis of liver; Z86.19 Personal history of other infectious and parasitic diseases; Z79.899 Other long term (current) drug therapy; Z98.890 Other specified postprocedural states
CPT/HCPCS: 49083; J3490; P9047; Z7610; A6258; A6449

== ENCOUNTER 2021-10-28 08:30 | Day surgery (SDC) | payer OTHER ==
[~2021-10-28] VITALS: Ht 188 cm; Wt 92.6 kg
[2021-10-28] VITALS (10 sets, daily range): BP systolic 97–126; BP diastolic 47–73
[2021-10-28] MEDS ORDERED: albumin 25% 100mL bottle x 1 IV PRN (09:00)
[2021-10-28] MEDS ORDERED: LIDOcaine 1%/PF 5ML 10 MG/ML VIAL SQ ONE (09:35)
== END 2021-10-28 11:50 | disposition home or self-care (01) ==
LOC: SSTAY O 08:30
PROVIDERS: ATTEND Radiology Vascular & Interventional Radiology
DX: R18.8 Other ascites (principal); K74.60 Unspecified cirrhosis of liver; Z79.899 Other long term (current) drug therapy; Z98.890 Other specified postprocedural states; Z88.8 Allergy status to other drugs, medicaments and biological substances
CPT/HCPCS: 49083; J3490; P9047; A6258; A6449

== ENCOUNTER 2021-11-05 09:55 | Day surgery (SDC) | payer OTHER ==
[~2021-11-05] VITALS: Ht 188 cm; Wt 93.6 kg
[2021-11-05] VITALS (7 sets, daily range): BP systolic 107–128; BP diastolic 56–69
[2021-11-05] MEDS ORDERED: albumin 25% 100mL bottle x 1 IV PRN (10:15)
[2021-11-05] MEDS ORDERED: LIDOcaine 1%/PF 5ML 10 MG/ML VIAL IJ ONE (10:25)
[2021-11-21] MEDS ORDERED: AMOX-419 PO (16:39)
== END 2021-11-05 12:10 | disposition home or self-care (01) ==
LOC: SSTAY O 09:55
PROVIDERS: ATTEND Radiology Vascular & Interventional Radiology
DX: R18.8 Other ascites (principal); K74.60 Unspecified cirrhosis of liver; Z85.05 Personal history of malignant neoplasm of liver
CPT/HCPCS: 49083; J3490; P9047; A6258; A6449

== ENCOUNTER 2021-11-18 08:00 | Day surgery (SDC) | payer OTHER ==
[2021-11-18] VITALS (8 sets, daily range): BP systolic 96–104; BP diastolic 54–61
[~2021-11-18] VITALS: Ht 188 cm; Wt 99.2 kg
[2021-11-18] MEDS ORDERED: albumin 25% 100mL bottle x 1 IV PRN (08:20)
--- NOTE | 2021-11-18 09:00 | NUR ---
Christina MARTINEZ at bedside. Pt states he doesn't feel well. BP 90's, pt states it is typically 120's. Tres encouraged pt to go to ER post Paracentesis. Pt refuses, will continue to educate and encourage.
[2021-11-18] MEDS ORDERED: lactulose 20gm/30ml cup PO ONE (09:35)
[2021-11-18 10:55] LABS: GLUCOSE,BODY FLUID 107 MG/DL
[2021-11-18 11:08] LABS: BF MESOTHELIAL CELLS FEW; BF RBC COUNT 1155 /CU MM; BF WBC COUNT 980 /CU MM (0-1000); BFAPPEAR CLOUDY; BFCOLOR YELLOW; BFVOLUME 49 ML; LYMPHOCYTES,BODY FLUID 13 %; MONOCYTES,BODY FLUID 9 %; NEUTROPHILS,BODY FLUID 78 %
[2021-11-21] MEDS ORDERED: AMOX-419 PO (16:39)
== END 2021-11-18 10:45 | disposition home or self-care (01) ==
LOC: SSTAY O 08:00
PROVIDERS: ATTEND Preventive Medicine Aerospace Medicine
DX: R18.8 Other ascites (principal); K74.60 Unspecified cirrhosis of liver; Z85.05 Personal history of malignant neoplasm of liver; Z79.899 Other long term (current) drug therapy; Z98.890 Other specified postprocedural states
CPT/HCPCS: 49083; 82945; 87070; 89051; A6258

== ENCOUNTER 2021-11-25 08:12 | Day surgery (SDC) | payer OTHER ==
[~2021-11-25] VITALS: Ht 188 cm; Wt 90.9 kg
[~2021-11-25 08:12] MED LIST changes: +AMOX-419 PO
[2021-11-25] MEDS ORDERED: LIDOcaine 1% 30ml preserv. free vial SQ STA (08:26)
[2021-11-25 08:35] VITALS: BP 112/69
[2021-11-25 08:38] VITALS: BP 112/69
[2021-11-25] MEDS ORDERED: albumin 25% 100mL bottle x 1 IV PRN (08:45)
[2021-11-25 09:32] VITALS: BP_SYST 112; BP_SYST 116; BP_DIAS 43; BP_DIAS 69
[2021-11-25 09:40] VITALS: BP 101/57
[2021-11-25 09:55] VITALS: BP 105/62
[2021-11-25 10:10] VITALS: BP 100/59
== END 2021-11-25 10:40 | disposition home or self-care (01) ==
LOC: SSTAY O 08:12
PROVIDERS: ATTEND Radiology Vascular & Interventional Radiology
DX: R18.8 Other ascites (principal); C22.0 Liver cell carcinoma; K74.60 Unspecified cirrhosis of liver; Z79.899 Other long term (current) drug therapy
CPT/HCPCS: 49083; 76705; A6258

== ENCOUNTER 2021-12-02 08:32 | Day surgery (SDC) | payer OTHER ==
[~2021-12-02] VITALS: Ht 188 cm; Wt 91.4 kg
[~2021-12-02 08:32] MED LIST changes: -AMOX-419 PO
[2021-12-02 08:45] VITALS: BP 116/74
[2021-12-02] MEDS ORDERED: albumin 25% 100mL bottle x 1 IV PRN (08:50)
[2021-12-02] MEDS ORDERED: LIDOcaine 1% 30ml preserv. free vial SQ STA (09:15)
[2021-12-02 10:00] VITALS: BP 110/65
[2021-12-02 10:15] VITALS: BP 112/67
[2021-12-02 10:30] VITALS: BP 108/41
[2021-12-02 10:45] VITALS: BP 106/60
[2021-12-02 11:05] VITALS: BP 108/61
== END 2021-12-02 11:15 | disposition home or self-care (01) ==
LOC: SSTAY O 08:32
PROVIDERS: ATTEND Radiology Vascular & Interventional Radiology
DX: R18.8 Other ascites (principal); K74.60 Unspecified cirrhosis of liver; Z85.05 Personal history of malignant neoplasm of liver; Z79.899 Other long term (current) drug therapy; Z98.890 Other specified postprocedural states
CPT/HCPCS: 49083; J3490; P9047; A6258; A6402

== ENCOUNTER 2021-12-09 08:20 | Day surgery (SDC) | payer OTHER ==
[~2021-12-09] VITALS: Ht 188 cm; Wt 94.8 kg
[2021-12-09] MEDS ORDERED: LIDOcaine 1% 30ml preserv. free vial SQ STA (08:36)
[2021-12-09 08:37] VITALS: BP 114/66
[2021-12-09] MEDS ORDERED: albumin 25% 100mL bottle x 1 IV PRN (08:50)
[2021-12-09 10:45] VITALS: BP 111/63
[2021-12-09 11:00] VITALS: BP 114/67
[2021-12-09 11:15] VITALS: BP 111/61
[2021-12-09 11:30] VITALS: BP 107/62
[2021-12-09 11:45] VITALS: BP 112/61
== END 2021-12-09 11:50 | disposition home or self-care (01) ==
LOC: SSTAY O 08:20
PROVIDERS: ATTEND Radiology Vascular & Interventional Radiology
DX: R18.8 Other ascites (principal); K74.60 Unspecified cirrhosis of liver; Z79.899 Other long term (current) drug therapy; Z98.890 Other specified postprocedural states
CPT/HCPCS: 49083; J3490; P9047; A6258; A6402

== ENCOUNTER 2021-12-16 08:20 | Day surgery (SDC) | payer OTHER ==
[~2021-12-16] VITALS: Ht 188 cm; Wt 94.8 kg
[2021-12-16 08:36] VITALS: BP 114/65
[2021-12-16] MEDS ORDERED: LIDOcaine 1% 30ml preserv. free vial SQ STA (08:39)
[2021-12-16] MEDS ORDERED: albumin 25% 100mL bottle x 1 IV PRN (09:25)
[2021-12-16 09:35] VITALS: BP 123/71
[2021-12-16 09:49] VITALS: BP 94/51
[2021-12-16 10:05] VITALS: BP 107/64
[2021-12-16 10:20] VITALS: BP 91/45
[2021-12-16 10:35] VITALS: BP 109/65
== END 2021-12-16 11:05 | disposition home or self-care (01) ==
LOC: SSTAY O 08:20
PROVIDERS: ATTEND Radiology Vascular & Interventional Radiology
DX: R18.8 Other ascites (principal); K74.60 Unspecified cirrhosis of liver; Z86.19 Personal history of other infectious and parasitic diseases; Z79.899 Other long term (current) drug therapy; Z98.890 Other specified postprocedural states
CPT/HCPCS: 49083; J3490; P9047; A6258

== ENCOUNTER 2021-12-27 06:06 | Day surgery (SDC) | payer OTHER ==
[~2021-12-27] VITALS: Ht 188 cm; Wt 96.5 kg
[2021-12-27] VITALS (7 sets, daily range): BP systolic 101–112; BP diastolic 56–79
[2021-12-27] MEDS ORDERED: LIDOcaine 1%/PF 5ML 10 MG/ML VIAL SQ ONE (06:30)
[2021-12-27] MEDS ORDERED: albumin 25% 100mL bottle x 1 IV PRN (06:35)
== END 2021-12-27 10:05 | disposition home or self-care (01) ==
LOC: SSTAY O 06:06
PROVIDERS: ATTEND Radiology Vascular & Interventional Radiology
DX: R18.8 Other ascites (principal); K74.60 Unspecified cirrhosis of liver; Z79.899 Other long term (current) drug therapy; Z98.890 Other specified postprocedural states; Z86.19 Personal history of other infectious and parasitic diseases
CPT/HCPCS: 49083; J3490; P9047; A6258; A6449

== ENCOUNTER 2022-01-06 06:13 | Day surgery (SDC) | payer OTHER ==
[~2022-01-06] VITALS: Ht 188 cm; Wt 98.2 kg
[2022-01-06] MEDS ORDERED: LIDOcaine 1% (10mg/ml) 2ml vial ONE (06:31)
[2022-01-06] MEDS ORDERED: albumin 25% 100mL bottle x 1 IV PRN (06:40)
[2022-01-06 06:45] VITALS: BP 119/71
[2022-01-06] MEDS ORDERED: LIDOcaine 1% 30ml preserv. free vial SQ STA (08:13)
[2022-01-06 08:35] VITALS: BP 112/63
[2022-01-06 08:55] VITALS: BP 112/64
[2022-01-06 09:10] VITALS: BP 106/63
[2022-01-06 09:25] VITALS: BP 106/59
== END 2022-01-06 09:40 | disposition home or self-care (01) ==
LOC: SSTAY O 06:13
PROVIDERS: ATTEND Radiology Diagnostic Radiology
DX: R18.8 Other ascites (principal); K74.60 Unspecified cirrhosis of liver; Z86.19 Personal history of other infectious and parasitic diseases; Z79.899 Other long term (current) drug therapy; Z98.890 Other specified postprocedural states; Z85.05 Personal history of malignant neoplasm of liver
CPT/HCPCS: 49083; J3490; P9047; A6258